=== PATIENT | female | born 1975 | race Caucasian/White ===

== ENCOUNTER 2024-05-23 21:47 | Inpatient (IN) | payer BC, OTHER, SELFPAY ==
[2024-05-23] VITALS (7 sets, daily range): BP systolic 125–144; BP diastolic 76–89
[2024-05-23 18:48] LABS: Glucose - Point of Care 88 mg/dl (70-99)
[2024-05-23 19:09] LABS: % Basophils 0.5 % (0-2); % Immature Granulocytes 0.5 % (0-0.5); % Monocytes 7.4 % (1.7-9.3); % Neutrophils 81.6 % (42.2-75.2); Absolute Lymphocytes 0.7 10^3/uL (1.2-3.4); Absolute Monocytes 0.5 10^3/uL (0.1-0.6); Absolute Neutrophils 5.3 10^3/uL (1.4-6.5); Hematocrit 40.5 % (37.0-47.0); Hemoglobin 13.7 g/dL (12.0-16.0); Mean Corp Hgb Conc. 33.8 g/dL (33.0-37.0); Mean Corpuscular Hgb 30.6 pg (27.0-31.0); Mean Corpuscular Volume 90.4 fL (81.0-99.0); Mean Platelet Volume 9.7 fL (7.4-10.4); Nucleated Red Blood Cells % 0 %; Platelet Count 174 10^3/uL (130-400); Red Blood Cell Count 4.48 10^6/uL (4.20-5.40); White Blood Cell Count 6.5 10^3/uL (4.8-10.8)
--- NOTE | 2024-05-23 19:24 | ED.GENMED ---
History of Present Illness
General
Chief Complaint: Change in Mental Status
Source: patient and family
Exam Limitations: other (Aphasia)
Time Seen by Provider: 05/23/24 18:47
History of Present Illness
History of Present Illness:
49-year-old female somewhat of a difficult historian due to aphasia however presents not feeling well since this morning. After multiple discussions with the gdrtnw-wd-npq and ex- we found out that the ex- talk to her at 2:45 PM and
she was somewhat disoriented and having trouble with words at that time. The bhoeiq-mi-ftq talked to her at 430 with same issues. She was then seen at 530 moving boxes, she is moving. However the symptoms persisted. The hidwme-jg-fmi contacted
the ambulance based on location finder. No history of same.
Past History
Past History
ED Past Medical History: None
Review of Systems
Review of Systems
All Other Systems: Not applicable
Respiratory: Reports no symptoms
Cardiac: Reports no symptoms
ABD/GI: Reports no symptoms
Phy Exam
Physical Exam
Physical Exam:
GENERAL: Alert and oriented
EYE: Orbits normal.
NECK: Supple, no carotid bruit
ENT: Pharynx without erythema
CARDIAC: Regular rate and rhythm without any obvious murmurs.
LUNGS: Clear breath sounds,normal
ABDOMEN: Soft, without focal tenderness or distention
NEUROLOGICAL: Alert and oriented , speech is clear but has trouble with word finding at times. Occasionally the wall word comes out. No slurred speech however. Cranial nerves II through XII intact. No drift. Uhrriy-el-ausd normal. Light touch
intact. Mild tremor at times
SKIN: Warm and dry, no rash or lesion, no discoloration, skin intact.
MUSCULOSKELETAL: No edema,no deformity.Good color
PSYCH: Normal and appropriate interaction.
Scores
NIH Stroke Score
Level of Consciousness: 0 - Alert
LOC Questions: 0-Answers both correctly
LOC Commands: 0-Performs both correctly
Best Horizontal Gaze: 0-Normal
Visual Avila: 0=Normal, no visual loss
Facial Palsy: 0=Normal, symmetrical
Motor - Right Arm: 0=No drift 10 seconds
Motor - Left Arm: 0=No drift 10 seconds
Motor - Right Le-No drift 5 seconds
Motor - Left Le-No drift 5 seconds
Limb Ataxia: 0-Absent
Sensation: 0-Normal
Best Language: 2-Severe aphasia
Dysarthria: 0-Normal
Extinction and Inattention: 0-No abnormality
Total Score:: 2
Course
Orders/Labs/Results
Orders:
Orders
05/23/24 18:53
CT HEAD STROKE ALERT W/o Cont Urgent
Comment:
Reason For Exam: Expressive aphasia
CT HEAD/NECK ANG STROKE ALERT Urgent
Comment:
Reason For Exam: Expressive aphasia
Cardiac Monitoring- Treatment ONCE
IV Insert/Care/Rem.- Treatment PRN
Pulse Ox/cont/shift [RESP] Stat
Quantity: 1
05/23/24 18:54
Electrocardiogram (*1) Stat
Reason for Study: Other
Other Reason for Exam: neuro symptoms
EKG- Treatment ONCE
Test Result ONCE
05/23/24 18:59
Alcohol Urgent
Basic Metabolic Panel Urgent
Complete Blood Count/With Diff Urgent
HCG, Serum Qualitative Screen Urgent
Comment: ADD ON
05/23/24 19:43
0.9% Sodium Chloride 1000 ml [Nss] 1,000 ml IV BOLUS
Aspirin Chewable [Low Strength Aspirin] 324 mg PO NOW STA
Clopidogrel Bisulfate [Plavix] 150 mg PO NOW STA
05/23/24 20:10
Add On- LAB Urgent
Tests Added?: hcg qual
05/23/24 20:27
Clopidogrel Bisulfate [Plavix] 450 mg PO NOW STA
05/23/24 20:54
Add On- LAB Urgent
Tests Added?: alcohol
05/23/24 20:57
Acetaminophen 1000MG/100Ml [Ofirmev] 1,000 mg in 100 ml IV ONCE
Acetaminophen IV Indication:: ED Narcotic Naive Pt-ONCE
Ondansetron Injectable [Zofran] 4 mg IV NOW STA
05/23/24 21:14
Admit/Transfer Patient As Directed
Co-Sign Provider:
Level of Care: Inpatient admission
Assign to:: Telemetry
Physician / Group: naveen rasmussen
Diagnosis: acute cva expressive aphasia, acute headache, etoh misuse
Reason for Telemetry: CVA/TIA
Date to Stop Telemetry: 05/26/24
Time to Stop Telemetry: 11:00
Reason for Hospitalization: acute cva expressive aphasia, acute headache, etoh misuse
Expected length of stay greater than two midnights?: Yes
ELOS- Estimated Length of Stay in days: 5
I certify the patient meets the requirements for IP care: Yes
Code Status As Directed
Resuscitation Status: Full Code
05/23/24 21:19
PRN Pain Medication Management As Directed
May give lesser potent ordered pain med per pt: Yes
preference::
Protocol:: Medication orders for pain may be administered in a
manner that supports deferring to patient preference
when the pt is:
- Requesting an ordered lesser potent pain medication.
Least to most potent pain medications are defined
as: acetaminophen < NSAID < tramadol < opioids
(morphine, oxycodone, hydromorphone).
- Requesting a lesser dose of the same medication IF
ORDERED.
- Requesting a less intrusive route of administration
if both routes are prescribed by the provider (PO <
IV).
05/23/24 21:51
COVID-19 Antigen Urgent
Source: Nasal Swab
05/23/24 22:00
Flush (0.9% Sodium Chloride) [Flush (Nss)] See Dose Instructions IV PER PROTOCOL
05/23/24 22:55
0.9% Sodium Chloride [Nss (Preservative Free)] See Protocol IV PRN PRN
Acetaminophen [Tylenol] 650 mg PO Q4HPRN PRN
Atorvastatin [Lipitor] 40 mg PO QPM
FOLic ACID [Folvite] 1 mg 0.9% Sodium Chloride 50 ml [Nss] 50 ml IV DAILYPRN
Lorazepam [Ativan] 1 mg IV Q1HPRN PRN
Lorazepam [Ativan] 1 mg PO Q2HPRN PRN
Lorazepam [Ativan] 2 mg IV Q1HPRN PRN
Thiamine Injection 200 mg IV Q12
05/23/24 22:55
Echo 2D MMode Color/Doppler Routine
Reason for Study: stroke/TIA
Case Management Consult ONCE
Case Management Consult: Discharge Planning
Comment: stroke/tia
Case Management Consult Once
Case Management Consult: Other
Comment: Substance abuse counseling
DIETARY IP CONSULT Routine
Reason for Consult: Nutrition support, possible refeeding guidelines
DIETARY IP CONSULT Routine
Reason for Consult: stroke/TIA
NEUROLOGY CONSULT Urgent
Consulting Provider: Edilma Pitts
Was physician already notified: Yes
Reason for consult: acute cva
Customs Port Director Urgent
B-Hydroxybutyrate Urgent
GGTP Urgent
Glycohemoglobin (HgbA1c) Routine
Magnesium Urgent
PTT Urgent
Phosphorus Urgent
Prothrombin Time Urgent
Urinalysis Routine
Urine Drug Abuse Screen Routine
MR Brain Without Contrast Routine
Comment:
Reason For Exam: stroke/TIA
OK for patient to be off Cardiac Monitoring for MRI: Yes
Recent pill cam endoscopy?: No
Pacemaker/Defibrillator?: No
Activity As Directed
Activity Level: With Assistance
MSAS SCORE As Directed
MSAS Score 0-4: Repeat MSAS every 2 hours until 0-4 for three consecutive assessments, then every 4 hours x 48
hours.
MSAS Score 5-7: For MILD withdrawl symptoms. Repeat MSAS and RASS every 2 hours
MSAS Score 8-11: For MODERATE withdrawal symptoms. Repeat MSAS and RASS every 1 hour. Consider ICU or IMU
level of care.
MSAS Score > 11: For SEVERE withdrawal symptoms. Repeat MSAS and RASS every 1 hour. Notify provider, consider
ICU level of care.
MSAS Additional Instructions: If no improvement or no decrease in score from severe to moderate within 12
hours, consult psychiatry
MSAS Notify Provider: Notify provider if patient requires more than 10 mg of Lorazepam in eight hour period.
NIH Stroke Scale As Directed
Directions: Per protocol
Comment: every shift and with any change in condition or mental status
Neurological Checks As Directed
Frequency: q4h
Additional Instructions:: q4h x 24h upon admission to the floor, then qshift & with any change in condition
and mental status
Patient Education As Directed
Type: Stroke education packet
Comment: provide to patient and family
Pneumatic Compression Sleeves As Directed
Type: Knee high
Swallow Screening CVA/TIA ONLY As Directed
Comment: NPO until swallowing screening completed
If patient FAILS swallow screening:: NPO, Speech Therapy consult, Aspiration Precautions
If patient PASSES swallow screening, diet:: Cholesterol Lowering
Vital Signs As Directed
Frequency: Per unit guidelines
Ot Eval And Treat Routine
Pt Eval And Treat Routine
Activity Level: As Tolerated
Speech Therapy Eval & Treat Routine
DX Deep Vein Thrombosis Video Routine
05/24/24 03:00
Acetaminophen [Tylenol/Feverall] 650 mg RECTAL Q4HPRN PRN
05/24/24 06:00
Cardiovascular Evaluation IN AM
05/24/24 08:00
Aspirin Chewable [Low Strength Aspirin] 81 mg PO DAILY
Clopidogrel Bisulfate [Plavix] 75 mg PO DAILY
FOLic ACID [Folvite] 1 mg PO DAILY
05/26/24 11:00
DC Protocol for Telemetry ONCE
05/27/24 08:00
Thiamine HCl [Vitamin B1] 100 mg PO BID
Abnormal Lab Results
05/23/24
18:59
Absolute Lymphs (auto) 0.7 L 10^3/uL
(1.2-3.4)
Neutrophils % 81.6 H %
(42.2-75.2)
Lymphocytes % 10.0 L %
(20.5-51.1)
05/23/24 18:59
05/23/24 18:59
Vital Signs
Initial and Last Documented VS:
Initial Vital Signs
BP
144/86
05/23/24 18:48
Last Documented Vital Signs
Temp Pulse Resp BP Pulse Ox
98.4 F 76 30 125/78 96
05/23/24 18:50 05/23/24 22:00 05/23/24 22:00 05/23/24 22:00 05/23/24 20:30
*Pulse Oximetry
Patient hypoxic: no
*EKG
Interpreted by ED Provider?: Yes
Interpretation: normal
Comparison EKG: no comparison EKG present
Heart Rate: 91
Rate: normal
Rhythm: sinus
[place]: normal axis
Interval: normal interval
QRS Pattern: normal QRS
Ischemia: no ischemia
*Commissary Manager Interpretation
Rate: normal
Interpretation: normal
Heart Rate: 90
Rhythm: sinus
*Critical Care Note
Total Time (30-74mins, 75-104mins- exclusive of procedures): 45
Update Note
Update Note:
Multiple discussions trying to find out when she was last normal. We know this started before 2:45 PM which is already out of the 4-1/2-hour window. Patient states she did not feel quite right this morning. Not a thrombolytic candidate.
Discussed with patient. Discussed with neurology. We will do aspirin and Plavix.
1944... Superior division left M2 with asymmetrical flow and decreased flow. Contacted [facility]. They are looking at the study now to decide whether to transfer. Patient and family updated.
2019... Discussed with Sudeep. Distal M2. They would not go after this. Recommend full Plavix(600), aspirin head flat fluids permissive hypertension.
ED Attending Note
-
Portions of this chart may have been created with voice recognition software.� Occasional wrong word or��sound alike� substitutions may have occurred due to the inherent limitations of voice recognition software.
Discharge Plan
Departure
Patient Disposition: Admit
Date of Disposition: 05/23/24
Time of Disposition: 20:26
Presentation/result/management discussed w/ accepting MD/DO: Neurology
Discharge Problem:
Expressive aphasia, Probable CVA
Interventions
Interventions:
*Risk Screen - Suicide Last Done: 05/23/24 18:55
*General Assessment Last Done: 05/23/24 18:50
*Neglect/Abuse Screening Last Done: 05/23/24 18:55
*ED- Fall Risk Assessment Last Done: 05/23/24 18:55
*ED COVID-19 Vaccine History Last Done: 05/23/24 18:55
ED- Pulmonary Assessment Last Done: 05/23/24 18:55
ED- Neurological Assessment Last Done: 05/23/24 18:55
ED- Cardiac Assessment Last Done: 05/23/24 18:55
ED Swallowing Screen Last Done: 05/23/24 18:55
[2024-05-23 19:31] LABS: Blood Urea Nitrogen 13 mg/dl (7-17); Calcium 9.7 mg/dl (8.4-10.2); Carbon Dioxide 22 mmol/L (22-30); Chloride 104 mmol/L (98-107); Glucose 99 mg/dl (70-99); Sodium 142 mmol/L (135-145); eGFR > 60.00
[2024-05-23] MEDS: LOW STRENGTH ASPIRIN 324 MG PO (20:02)
[2024-05-23] MEDS: PLAVIX 150 MG PO (20:02)
[2024-05-23] MEDS: NSS 1000 IV (20:04)
--- NOTE | 2024-05-23 20:35 | HPS.HSE ---
Family Physician
-
Family Physician: NOT KNOW UNKNOWN - PT DOES
Chief Complaint
-
Aphasia, word replacing, headache, nausea
History of Present Illness
49-year-old female according to the ER notes she was talking to her ex- at 2:45 PM when he noticed she was somewhat disoriented and having trouble finding her words.. The pdnaym-qa-fkt talked to her at 430 and noticed the same issues. She
was then seen at 530 moving boxes as she is currently moving. Her eyxtov-xc-ukj contacted an ambulance based on location finder, where she was found by EMS at a [employer] on the phone with her family having expressive aphasia. Patient currently
has expressive aphasia with word replacement when trying to state a problem she will use the word I am excusing, I cannot sore. She is oriented to first and last name age 49 president when asked the year she stated [birth year], is oriented to her 2
children Stephanie 17 cm 14 almost 15 May. She reports a headache all over her head this morning with nausea and light sensitivity. She denies alcohol today because of her headache. She reports her headaches get worse in the spring. She denies
history of smoking or drug use. She is adopted and does not know her family history. She states she is close with her adopted father, but not her adopted mother. She denies sore throat, chest pain, palpitations, cough, shortness of breath, fever,
chills, abdominal pain, vomiting, diarrhea. Past medical history includes migraine headaches, daily alcohol use, hormonal IUD placement.
Medical History
Past Medical History
Past Medical History: Reports Other
Additional Past Medical History:
Migraine headaches worse in the spring
Daily alcohol use 1 or 2 glasses of white wine
Hormonal IUD placement
2 vaginal births 2 girls ages 17 and 14
Past Surgical History: Reports None
Social History
Tobacco: Non-smoker
Alcohol: Daily (1-2 glasses white wine)
Drug: None
Personal: (Ex- Dano)
Living: With Family (2 daughters Stephanie and Greg)
Family History
Family History: Other (Patient adopted does not know biological family)
Allergies / Home Medications
Allergies reflects when Allergies were last updated in [facility].
Home Medications with original date entered in [facility]
Allergy/Medication List:
Allergies
Allergy/AdvReac Type Severity Reaction Status Date / Time
No Known Allergies Allergy Unverified 05/23/24 19:17
Home Medications
No Meds [No Current Medications] 05/23/24
Review of Systems
-
History Source: Patient and Physician (ER physician and ER nurse)
A 12 point ROS was completed and negative except as noted: Yes
Constitutional: Denies Fever or Chills
EENT: Reports Other (Expressive aphasia and word replacing); Denies Sore Throat or Runny Nose
Respiratory: Denies Cough or Trouble Breathing
Cardiac: Denies Chest Pain, Diaphoresis, Palpitations or Syncope
Abdomen/GI: Reports Nausea; Denies Abdominal Pain, Vomiting, Diarrhea or Constipated
: Denies Dysuria, Frequency, Flank Pain, Incontinence or Difficulty Voiding
Musculoskeletal: Denies Joint Pain or Edema
Skin: Denies Itching or Rash
Neurological: Reports Headache (All over her head 10 out of 10, light sensitivity); Denies Dizzy, Weakness or Numbness
Endocrine: Reports No Symptoms
Hematologic/Lymphatic: Reports No Symptoms
Psych: Reports Calm
Physical Exam
Vital Signs
Vital Signs
Temp Pulse Resp BP Pulse Ox
98.4 F 93 22 144/86 99
05/23/24 18:50 05/23/24 18:50 05/23/24 18:50 05/23/24 18:50 05/23/24 18:50
Physical Exam
General: Conversant and Pain (Headache all over 10 out of 10 plus light sensitivity); No Fever, Chills or Slurred Speech
HEENT: NormoCephalic, Anicteric, PERRLA, [place] Conjunctivae, No Ptosis, Neck Nontender and Other (Dry oral mucosa)
Respiratory: Clear; No Wheezes, Rales or Rhonchi
Cardiac: S1/S2 and Regular Rhythm; No Murmur, Rub, Gallop or Peripheral Edema
GI: Soft, Non Tender, Non Distended, Normal Bowel Sounds and No Hepatosplenomegaly
Rectal: Deferred by Provider
Genito-urinary: Deferred by me
Musculoskeletal: No Clubbing, No Cyanosis and No Edema
Skin: Warm and Dry; No Rash or Jaundice
Neuro: Awake, Alert, Oriented (To name, age 49, president Lena, thinks it is [birth year], 2 daughters Stephanie and Greg age 17 and 14 almost 15 in May, ex- Dano), No Motor Deficits, Cranial Nerves Intact and No Sensory Deficits; No Slurred Speech,
Facial Droop, Tremors or Sedated
Psych: Anxious (Due to headache and expressive aphasia)
Laboratory Results
-
05/23/24 18:59
05/23/24 18:59
Impression/Plan
-
Impression/plan:
Admit to telemetry
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
Current headache/nausea patient reports 10 out of 10
-Consult Neurology- Dr kaur
-Check lipid profile, HgbA1c
-Check UDS
-ER Dr Pettit spoke with Neurology at [facility] who stated the area of occlusion was too distal for any intervention
-Allow permissive HTN-BP 144/86
-They recommended Plavix 600 mg now then Plavix 75 mg daily
-Then aspirin 324 mg then aspirin 81 mg now and daily
-Will check MRI brain in a.m.
-Will give IV Ofirmev
-IV Zofran as needed
-Speech swallow eval
-PT/OT/case management
EKG: NSR 91 bpm, QTc 435 MS otherwise normal
CTA head and neck:
1. Asymmetric poor opacification of the mid/distal superior division of the left M2 suspicious for occlusion
2. No significant arterial stenosis. Diminutive appearance of the right vertebral artery throughout its course with PICA termination. Left dominant vertebral artery.
#History migraines
-Per patient worse in the spring
Has migraine today with allover headache and nausea
-Will give IV Ofirmev in the ER and as needed, Tylenol as needed
-IV Zofran as needed
#Daily alcohol use
Patient was able to state 1 or 2 glasses of white wine a day but not today for 03/13/2024
-Check alcohol level
-MSAs screen with protocol
-IV thiamine, IV folate
#Patient has hormonal IUD placed
DVT prophylaxis
SCDs
Full code
--- NOTE | 2024-05-23 20:37 | W.PN.UPDATE ---
Update Note
Progress Note Update
This note serves as an addendum to the H&P by bowling ball marker NATE Lilly BROWNING
HPI
49F No significant PMHX somewhat difficult historian due to aphasia seen at ER:
- reports not feeling well since this morning.
- per cghwvv-ou-idm and ex- account:
- ex- talk to her at 2:45 PM and she was somewhat disoriented and having trouble with words at that time.
- mhcwvt-yy-tyx talked to her at 430 with same issues.
- She was then seen at 530 moving boxes, she is moving. However the symptoms persisted.
- Jlmvcn-im-ypi contacted the ambulance based on location finder.
Vital Signs
Temp Pulse Resp BP Pulse Ox
98.4 F 93 22 144/86 99
05/23/24 18:50 05/23/24 18:50 05/23/24 18:50 05/23/24 18:50 05/23/24 18:50
PE
Gen: looks unwell
HEENT:symmetric face
Neck: supple
Lungs:CTA
Cor:S1 S2
Abdomen: soft
INSULATING MACHINE OPERATOR: trouble with word finding at times. Occasionally the word comes out. No slurred speech
MS: symmetric movement in all extremities
Psych: flat
Lab
05/23/24
18:59
WBC 6.5
Hgb 13.7
Plt Count 174
BUN 13
Creatinine 0.7
eGFR > 60.00
EKG
NORMAL SINUS RHYTHM
NORMAL ECG
NO PREVIOUS ECGS AVAILABLE
HCT: No acute intracranial abnormality.
CT HEAD/NECK ANG STROKE ALERT
CTA Head: There is asymmetrically poor opacification of the mid/distal superior division of the left M2 suspicious for occlusion.
CTA Neck: No significant arterial stenosis. Diminutive appearance of the right vertebral artery throughout its course with PICA termination. Left dominant vertebral artery.
No prior hospitalist admission:
ASSESSMENT & PLAN
Acute CVA with dysphasia and word finding difficulty
CTA suggest superior division left M2 with asymmetrical flow and decreased flow.
ER attd case dw Neuro and Sudeep but cannot intervene due to distal M2
- out of the 4-1/2-hour window.
- Neuro suggest aspirin and Plavix.( Full load Plavix 450 + 150 suggested by [facility] per ER attd)
- Brain MRI
- ECHO
- Lipids and A1C
- ST to evaluate
- Neuro consulted
DVT Px: SCD
Full code
IP TLM
[2024-05-23] MEDS: PLAVIX 450 MG PO (20:38)
[2024-05-23 20:46] LABS: HCG, Serum Qualitative Screen Negative
[2024-05-23] MEDS: ZOFRAN 4 MG IV (21:08)
[2024-05-23] MEDS: OFIRMEV 100 IV (21:08)
[2024-05-23 21:13] LABS: Alcohol None Detected
[2024-05-23 22:17] LABS: COVID-19 Antigen Negative (Negative)
[2024-05-23] MEDS: LIPITOR 40 MG PO (23:49)
[2024-05-23] MEDS: FLUSH (NSS) 2 FLUSH IV (23:49)
[2024-05-23] MEDS: THIAMINE INJECTION 200 MG IV (23:49)
[2024-05-24 00:20] LABS: GGTP 20 U/L (12-43); Magnesium 2.1 mg/dl (1.6-2.3); Phosphorus 3.2 mg/dl (2.5-4.5)
[2024-05-24 00:21] LABS: APTT 27.6 Sec (23.4-35.0); INR 1.04; PT 13.9 Sec (11.4-14.6)
[2024-05-24 00:26] LABS: B-Hydroxybutyrate > 6.00 mmol/L (0.02-0.27)
[2024-05-24] MEDS: TYLENOL 650 MG PO ×2 (03:05→12:36)
[2024-05-24 03:21] VITALS: BP 132/74
[2024-05-24 05:27] LABS: Urine Albumin 1+ (Neg - Trace); Urine Bilirubin Negative (Negative); Urine Character Clear (Clear); Urine Color Yellow; Urine Glucose Negative (Negative); Urine Ketone 3+ (Negative); Urine Leukocyte Negative (Negative); Urine Nitrite Negative (Negative); Urine Occult Blood 1+ (Negative); Urine Specific Gravity 1.025 (<1.030); Urine Urobilinogen Negative (Neg - 1+)
[2024-05-24 05:39] LABS: Urine Amorphous Seen; Urine Mucus Moderate; Urine Squamous Cell >30 /LPF (Few)
[2024-05-24 05:41] LABS: Urine Bacteria Moderate (Negative)
[2024-05-24 06:50] LABS: Amphetamines Negative (Negative); Barbiturates Negative (Negative); Benzodiazepines Negative (Negative); Buprenorphine Negative (Negative); Cocaine Negative (Negative); Marijuana Negative (Negative); Methadone Negative (Negative); Methamphetamines Negative (Negative); Opiates Negative (Negative); Phencyclidine Negative (Negative); Tricyclic Antidepressants Negative (Negative)
--- NOTE | 2024-05-24 07:49 | CON.NEURO ---
Consultation
Order
Date of Consultation: 05/24/24
Requesting Provider: Lilly Clarke CRNP
Reason for Consult: Stroke
Neurology Consultation Note.
HPI: This is a 49-year-old right-handed woman who presented to [facility] on 05/23/2024 with language dysfunction and headache.
Ms. Brown reports experiencing trouble 'holding up' since late morning to early afternoon yesterday, initially attributing it to fatigue. The speech difficulties were characterized by an inability to find the right words, accompanied by
comprehension issues. A headache developed in the late afternoon, coinciding with the speech problems. The headache was described as pounding and associated with palpitations. The patient has a history of migraines with aura. She typically manages
her migraines with ibuprofen 800 mg, which is usually effective. The patient's ex-fiancee's sister recognized something was wrong during a phone conversation and called an ambulance. The patient denies any current headache or speech difficulties at
the time of the interview.
ER VS: 144/86, 93, afebrile
EKG:NSR, QTc Int : 435 ms.
PDMP:none
Labs: LDL�85, globin A1c�5.2, normal sodium, creatinine, glucose, WBCs.
CT head wo contrast�no acute abnormalities
CTA head/neck- asymmetrically poor opacification of the mid/distal superior division of the left M2 suspicious for occlusion.
Ms. Brown was loaded with Plavix 600 mg in ER.
PMH: allergic rhinitis, migraine with aura
PSH:none
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
FH: Adopted
All:NKDA
ROS: Positive for intentional 20 pounds weight loss
HENT: Negative for ear pain, hearing loss, tinnitus and trouble swallowing.
Eyes: Negative. Negative for photophobia, pain and visual disturbance.
Respiratory: Negative for cough, choking and shortness of breath.
Cardiovascular: Negative for chest pain, palpitations and leg swelling.
Gastrointestinal: Negative for abdominal pain and vomiting.
Endocrine: Negative. Negative for cold intolerance.
Genitourinary: Negative for dysuria, flank pain and urgency.
Musculoskeletal: Negative for back pain, gait problem, neck pain and neck stiffness.
Skin: Negative for rash.
Allergic/Immunologic: Negative. Negative for immunocompromised state.
Neurological: Positive for transient headache and aphasia
Psychiatric/Behavioral: Negative for behavioral problems, confusion and hallucinations.
General: Well developed. In no acute distress.
Cardio: Regular rate and rhythm without murmur. Extremities are without cyanosis or edema.
Neuro:
Mental Status: Alert, oriented to person, place, and date. Normal attention and recall. Good fund of knowledge. Follows complex requests across the midline. Comprehension, naming, and repetition intact.
Cranial Nerves: Pupils are equally round and reactive to light. EOMs full. Visual raygoza full to confrontation. No ptosis. No nystagmus. V1-V3 intact to light touch and pinprick bilaterally, symmetric. Face symmetric. Normal hearing AU. The
palate elevated well. SCMs and traps 5/5. Tongue midline. No dysarthria.
Motor: Normal bulk and tone. No pronator or arm drift. Strength 5/5 throughout. No clonus.
Reflexes: 2+ throughout the upper extremities and knees. Plantar responses flexor bilaterally.
Sensory: Normal vibration and JPS.
Coordination: No dysmetria or tremor.
Gait: deferred
Assessment and Plan:
I. Acute aphasia. Differential diagnosis includes migraine with aura versus vascular versus epileptic
II. Migraine with aura
III. 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
-Continue Telemetry monitoring
-TTE
-Continue aspirin 81 mg and Plavix 75 mg once a day for 3 weeks
-Further workup will depend on brain MRI results
-PT.
-DVT prophylaxis.
I personally reviewed all radiology and labs along with past medical records pertinent to current medical problems. Total time spent in patient care is 60 minutes.
Thank you for allowing us to participate in the care of this patient. We will continue to follow. Please do not hesitate to contact us with any questions or concerns.
Subjective/Objective
Subjective Data
Date of Service: May 24, 2024
Objective Data
Vital Signs
Temp Pulse Resp BP Pulse Ox
37.4 C 76 16 132/74 96
05/24/24 03:21 05/24/24 03:21 05/24/24 03:21 05/24/24 03:21 05/24/24 03:21
Lab Results
05/23/24 18:59
05/23/24 18:59
PT 13.9 Sec (11.4-14.6) 05/23/24 23:48
INR 1.04 05/23/24 23:48
APTT 27.6 Sec (23.4-35.0) 05/23/24 23:48
Sodium 142 mmol/L (135-145) 05/23/24 18:59
Potassium 4.0 mmol/L (3.5-5.1) 05/23/24 18:59
BUN 13 mg/dl (7-17) 05/23/24 18:59
Glucose 99 mg/dl (70-99) 05/23/24 18:59
Calcium 9.7 mg/dl (8.4-10.2) 05/23/24 18:59
Phosphorus 3.2 mg/dl (2.5-4.5) 05/23/24 23:48
Ur Buprenorphine Negative (Negative) 05/24/24 05:10
Patient Allergies
No Known Allergies Allergy (Unverified 05/23/24 19:17)
Medications
-
Active Medications
Generic Name Dose Route Start Last Admin
Trade Name Freq PRN Reason Stop Dose Admin
Acetaminophen 650 mg 05/24/24 03:00
Acetaminophen 650 Mg Rectal Suppository RECTAL 06/21/24 02:59
Q4HPRN PRN
ESPINOZA, mild pain, or temp >100.4F
Acetaminophen 650 mg 05/24/24 03:00 05/24/24 03:05
Acetaminophen 325 Mg Tablet PO 06/21/24 02:59 650 mg
Q4HPRN PRN Administration
ESIPNOZA, mild pain, or temp >100.4F
Aspirin 81 mg 05/24/24 08:00
Aspirin 81 Mg Chewable Tablet PO 06/21/24 07:59
DAILY ORIN
Atorvastatin Calcium 40 mg 05/23/24 22:55 05/23/24 23:49
Atorvastatin (Lipitor) 40 Mg Tablet PO 06/20/24 22:54 40 mg
QPM ORIN Administration
Clopidogrel Bisulfate 75 mg 05/24/24 08:00
Clopidogrel 75 Mg Tablet PO 06/21/24 07:59
DAILY ORIN
Folic Acid 1 mg 05/24/24 08:00
Folic Acid 1 Mg Tablet PO 06/21/24 07:59
DAILY ORIN
Folic Acid 1 mg/ Sodium 50.2 mls @ 200.8 mls/hr 05/23/24 22:55
Chloride IV 06/20/24 22:54
DAILYPRN PRN
if NPO
Lorazepam 1 mg 05/23/24 22:55
Lorazepam 1 Mg Tablet PO 06/20/24 22:54
Q2HPRN PRN
MSAS 5-7
Lorazepam 1 mg 05/23/24 22:55
Lorazepam 2 Mg/Ml Vial IV 06/20/24 22:54
Q1HPRN PRN
MSAS 8-11
Lorazepam 2 mg 05/23/24 22:55
Lorazepam 2 Mg/Ml Vial IV 06/20/24 22:54
Q1HPRN PRN
MSAS > 11
Sodium Chloride 0 flush 05/23/24 22:00 05/23/24 23:49
Sodium Chloride 0.9% (Flush) Syringe IV 06/20/24 21:59 2 flush
PER PROTOCOL ORIN Administration
Sodium Chloride 0 ml 05/23/24 22:55
Sodium Chloride 0.9% (Preservative Free) 10 Ml Vial IV 06/20/24 22:54
PRN PRN
To dilute IV Ativan
Protocol
Thiamine HCl 200 mg 05/23/24 22:55 05/23/24 23:49
Thiamine (100 Mg/Ml) 2 Ml Vial IV 05/26/24 08:01 200 mg
Q12 ORIN Administration
Thiamine HCl 100 mg 05/27/24 08:00
Thiamine 100 Mg Tablet PO 06/24/24 07:59
BID ORIN
Home Medications
�Medication �Instructions �Recorded
No Meds [No Current Medications] 05/23/24
Vital Signs and Labs
-
Vital Signs and Labs:
Vital Signs
Temp Pulse Resp BP Pulse Ox
37.1 C 69 18 115/68 98
05/24/24 08:10 05/24/24 08:10 05/24/24 08:10 05/24/24 08:10 05/24/24 08:10
Lab Results
05/23/24 18:59
05/23/24 18:59
PT 13.9 Sec (11.4-14.6) 05/23/24 23:48
INR 1.04 05/23/24 23:48
APTT 27.6 Sec (23.4-35.0) 05/23/24 23:48
Sodium 142 mmol/L (135-145) 05/23/24 18:59
Potassium 4.0 mmol/L (3.5-5.1) 05/23/24 18:59
BUN 13 mg/dl (7-17) 05/23/24 18:59
Glucose 99 mg/dl (70-99) 05/23/24 18:59
Calcium 9.7 mg/dl (8.4-10.2) 05/23/24 18:59
Phosphorus 3.2 mg/dl (2.5-4.5) 05/23/24 23:48
LDL Cholesterol, Calc 85 mg/dl 05/24/24 07:30
Ur Buprenorphine Negative (Negative) 05/24/24 05:10
Medications
-
Medications:
Generic Name Dose Route Start Last Admin
Trade Name Freq PRN Reason Stop Dose Admin
Acetaminophen 650 mg 05/24/24 03:00
Acetaminophen 650 Mg Rectal Suppository RECTAL 06/21/24 02:59
Q4HPRN PRN
ESPINZOA, mild pain, or temp >100.4F
Acetaminophen 650 mg 05/24/24 03:00 05/24/24 03:05
Acetaminophen 325 Mg Tablet PO 06/21/24 02:59 650 mg
Q4HPRN PRN Administration
ESPINOZA, mild pain, or temp >100.4F
Aspirin 81 mg 05/24/24 08:00 05/24/24 09:34
Aspirin 81 Mg Chewable Tablet PO 06/21/24 07:59 81 mg
DAILY ORIN Administration
Atorvastatin Calcium 40 mg 05/23/24 22:55 05/23/24 23:49
Atorvastatin (Lipitor) 40 Mg Tablet PO 06/20/24 22:54 40 mg
QPM ORIN Administration
Clopidogrel Bisulfate 75 mg 05/24/24 08:00 05/24/24 09:34
Clopidogrel 75 Mg Tablet PO 06/21/24 07:59 75 mg
DAILY ORIN Administration
Folic Acid 1 mg 05/24/24 08:00 05/24/24 09:34
Folic Acid 1 Mg Tablet PO 06/21/24 07:59 1 mg
DAILY ORIN Administration
Folic Acid 1 mg/ Sodium 50.2 mls @ 200.8 mls/hr 05/23/24 22:55
Chloride IV 06/20/24 22:54
DAILYPRN PRN
if NPO
Lorazepam 1 mg 05/23/24 22:55
Lorazepam 1 Mg Tablet PO 06/20/24 22:54
Q2HPRN PRN
MSAS 5-7
Lorazepam 1 mg 05/23/24 22:55
Lorazepam 2 Mg/Ml Vial IV 06/20/24 22:54
Q1HPRN PRN
MSAS 8-11
Lorazepam 2 mg 05/23/24 22:55
Lorazepam 2 Mg/Ml Vial IV 06/20/24 22:54
Q1HPRN PRN
MSAS > 11
Sodium Chloride 0 flush 05/23/24 22:00 05/23/24 23:49
Sodium Chloride 0.9% (Flush) Syringe IV 06/20/24 21:59 2 flush
PER PROTOCOL ORIN Administration
Sodium Chloride 0 ml 05/23/24 22:55
Sodium Chloride 0.9% (Preservative Free) 10 Ml Vial IV 06/20/24 22:54
PRN PRN
To dilute IV Ativan
Protocol
Thiamine HCl 200 mg 05/23/24 22:55 05/24/24 09:34
Thiamine (100 Mg/Ml) 2 Ml Vial IV 05/26/24 08:01 200 mg
Q12 ORIN Administration
Thiamine HCl 100 mg 05/27/24 08:00
Thiamine 100 Mg Tablet PO 06/24/24 07:59
BID ORIN
Home Medications
-
Home Medications
No Meds [No Current Medications] 05/23/24
[2024-05-24 08:10] VITALS: BP 115/68
[2024-05-24 08:56] LABS: HDL Cholesterol 57 mg/dl; LDL Cholesterol, Calculated 85 mg/dl; Total Cholesterol 154 mg/dl (50-199); Triglyceride 63 mg/dl (10-149); Very Low Density Lipoprotein 12 mg/dl (0-30)
--- NOTE | 2024-05-24 09:09 | W.PN.HOSP.TC ---
Today's Communication/Plan
-
see A/P
Assessment / Plan
Assessment / Plan
HPI: 49-year-old female without significant PMH p/w disorientation and aphasia.
She reports headache in the morning with nausea and light sensitivity.
A/P:
# Aphasia concern for acute stroke
CTA Head: There is asymmetrically poor opacification of the mid/distal superior division of the left M2 suspicious for occlusion.
CTA suggest superior division left M2 with asymmetrical flow and decreased flow.
No intervene of distal M2 per Neuro from admission
cont DAPT ASA/Plavix
Tele without arrhythmia noted
Check Brain MRI
Check echo with bubble as part of stroke work up
Check BL LE US as part of stroke work up
LDL 85
Follow A1C
Cleared for solid per SPL eval
Neuro consulted
# History migraines
s/p IV Ofirmev, cont Tylenol as needed
IV Zofran as needed
# Daily alcohol use
1 or 2 glasses of white wine a day
Alcohol level negative on admission
Cont MSAs screen with protocol, IV thiamine, IV folate
UDS negative
# Patient has hormonal IUD placed
DVT prophylaxis: SCDs
Full code
total time spent 51 min
Anticipated Discharge: Within 24 hours
Subjective/Interval History
-
Date of Service: May 24, 2024
Objective Data
-
Labs:
Laboratory Results
05/23/24
23:48
PT 13.9
INR 1.04
APTT 27.6
Vital Signs:
Vital Signs
Temp Pulse Resp BP Pulse Ox
37.1 C 69 18 115/68 98
05/24/24 08:10 05/24/24 08:10 05/24/24 08:10 05/24/24 08:10 04/02/25 08:10
I&O
05/23/24 05/24/24 05/25/24
06:59 06:59 06:59
Output Total 800 / 800
Balance -800 / -800
Review of Systems
-
All other systems: Reviewed and negative
Neuro: Reports Other (aphasia has resolved )
Physical Exam
-
General: Well Developed, Well Nourished, No Apparent Distress, Comfortable and Conversant; Negative Respiratory Distress
HEENT: Normocephalic, Atraumatic, Nose Appears Normal and Ears Appear Normal; Negative Oxygen
Respiratory: Clear to Auscultation and Non Labored Respirations; Negative Accessory Resp Muscle Use
Cardiac: Regular Rhythm and S1/S2
GI: Soft, Nontender, Nondistended and Normal Bowel Sounds
Skin: Warm and Dry
Neuro: Awake, Alert, Oriented and AO x 3; Negative Slurred Speech or Facial Droop
Psych: Calm and Intact Judgement/Insight
Data Reviewed
-
CT Scan: Report Reviewed by me
Labs: Labs Reviewed by me
--- NOTE | 2024-05-24 09:18 | PTOTSP ---
Speech Therapy Evaluation:
Swallow:
Pt presents with functional oropharyngeal swallow at bedside. No overt s/sx of aspiration across trials. WBC WNL. Pt passed 3oz swallow screen. No chest imaging completed thus far. She has no predisposing risk factors of dysphagia, however
precipitating risk factors include concern for acute CVA.
Language:
Given pt presented to with aphasia/word replacing and CTA of head showed suspicion for left M2 occlusion, the Quick Aphasia Battery (QAB) form 1 was administered. Scores were as follows:
Word comprehension: 10.00
Sentence comprehension: 9.58
Word findin.75
Grammatical construction: 10.00
Speech motor programmin.00
Repetition: 10.00
Readin.00
QAB overall: 9.89 - no aphasia
Pt earned an overall score of 9.89 on the QAB, indicative of 'no aphasia.' Pt's speech was fluent and without paraphasias or word finding deficits. She was able to independently follow all commands. Pt reported substantial improvement in
language/confusion compared to yesterday and last night.
Recommend:
1. Continue regular solids/thin liquids
2. Medications as tolerated
3. General aspiration precautions
4. FACING BASTER JUMPBASTING to briefly follow pending results of MRI, however swallow function and language skills appear WFL at this time.
[2024-05-24] MEDS: PLAVIX 75 MG PO (09:34)
[2024-05-24] MEDS: THIAMINE INJECTION 200 MG IV ×2 (09:34→19:48)
[2024-05-24] MEDS: FOLVITE 1 MG PO (09:34)
[2024-05-24] MEDS: LOW STRENGTH ASPIRIN 81 MG PO (09:34)
[2024-05-24 10:13] LABS: Glycohemoglobin (HgbA1c) 5.2 % (4.0-5.6)
--- NOTE | 2024-05-24 10:42 | PTCARENOTE ---
Pt in Cardiac Services for Echo Bubble Study. Procedure completed with aseptic technique. Right antecubital 20 G PC utilized, site clear, flushed easily pre and post procedure. Procedure completed per protocol, pt tolerated test well. No change in
status.
[2024-05-24 12:30] VITALS: BP 137/78
[2024-05-24 15:00] VITALS: BP 133/78
--- NOTE | 2024-05-24 16:30 | CM ---
Attempted to see patient however she would not wake up. Will attempt again in the am.
[2024-05-24] MEDS: LIPITOR 40 MG PO (17:02)
[2024-05-24 19:00] VITALS: BP 129/73
[2024-05-24 23:26] VITALS: BP 118/70
[2024-05-25] MEDS: TYLENOL 650 MG PO ×2 (01:43→08:07)
[2024-05-25 03:16] VITALS: BP 130/82
[2024-05-25 07:05] VITALS: BP 122/73
[2024-05-25] MEDS: LOW STRENGTH ASPIRIN 81 MG PO (08:07)
[2024-05-25] MEDS: THIAMINE INJECTION 200 MG IV (08:07)
[2024-05-25] MEDS: FOLVITE 1 MG PO (08:08)
[2024-05-25] MEDS: PLAVIX 75 MG PO (08:08)
--- NOTE | 2024-05-25 09:40 | W.PN.NEURO.1 ---
Today's Communication / Plan
-
.
Subjective/Objective
Subjective Data
Date of Service: May 25, 2024
Neurology follow-up note.
HPI: This is a 49-year-old right-handed woman who presented to [facility] on 05/23/2024 with language dysfunction and headache.
Continues to be in sinus rhythm on telemetry.
Ms. Brown reports 3 out of 10 bifrontal dull headache. No change in vision or recurrent language dysfunction.
LUDIN-no evidence of PFO or intermenstrual thrombus.
LDL�85, hemoglobin A1c�5.2.
Routine EEG(05/25/2024) infreeqeunt FIRDA.
PMH: allergic rhinitis, migraine with aura
PSH:none
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
FH: adopted
All:NKDA
ROS: Positive for intentional 20 pounds weight loss
HENT: Negative for ear pain, hearing loss, tinnitus and trouble swallowing.
Eyes: Negative. Negative for photophobia, pain and visual disturbance.
Respiratory: Negative for cough, choking and shortness of breath.
Cardiovascular: Negative for chest pain, palpitations and leg swelling.
Gastrointestinal: Negative for abdominal pain and vomiting.
Endocrine: Negative. Negative for cold intolerance.
Genitourinary: Negative for dysuria, flank pain and urgency.
Musculoskeletal: Negative for back pain, gait problem, neck pain and neck stiffness.
Skin: Negative for rash.
Allergic/Immunologic: Negative. Negative for immunocompromised state.
Neurological: Positive for transient aphasia
Psychiatric/Behavioral: Negative for behavioral problems, confusion and hallucinations.
General: Well developed. In no acute distress.
Cardio: Regular rate and rhythm without murmur. Extremities are without cyanosis or edema.
Neuro:
Mental Status: Alert, oriented to person, place, and date. Normal attention and recall. Good fund of knowledge. Follows complex requests across the midline. Comprehension, naming, and repetition intact.
Cranial Nerves: Pupils are equally round and reactive to light. EOMs full. Visual raygoza full to confrontation. No ptosis. No nystagmus. V1-V3 intact to light touch and pinprick bilaterally, symmetric. Face symmetric. Normal hearing AU. The
palate elevated well. SCMs and traps 5/5. Tongue midline. No dysarthria.
Motor: Normal bulk and tone. No pronator or arm drift. Strength 5/5 throughout. No clonus.
Reflexes: 2+ throughout the upper extremities and knees. Plantar responses flexor bilaterally.
Sensory: Normal vibration and JPS.
Coordination: No dysmetria or tremor.
Gait: deferred
Assessment and Plan:
I. TIA versus migraine with aura. FIRDA has been seen with migraine headache as well as metabolic disturbances, or in some cases, epilepsy.�
II. 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
-Continue aspirin 81 mg and Plavix 75 mg once a day for 3 weeks followed by aspirin 81 mg daily
-Outpatient hematology (thrombophilia workup) and cardiology (Holter monitoring) evaluation
-OP cEEG
-Outpatient neurology follow-up
I personally reviewed all radiology and labs along with past medical records pertinent to current medical problems. Total time spent in patient care is 35 minutes.
Thank you for allowing us to participate in the care of this patient. Please do not hesitate to contact us with any questions or concerns.
Objective Data
Vital Signs
Temp Pulse Resp BP Pulse Ox
36.9 C 64 18 122/73 94
05/25/24 07:05 05/25/24 07:05 05/25/24 07:05 05/25/24 07:05 05/25/24 07:05
Lab Results
05/23/24 18:59
05/23/24 18:59
PT 13.9 Sec (11.4-14.6) 05/23/24 23:48
INR 1.04 05/23/24 23:48
APTT 27.6 Sec (23.4-35.0) 05/23/24 23:48
Sodium 142 mmol/L (135-145) 05/23/24 18:59
Potassium 4.0 mmol/L (3.5-5.1) 05/23/24 18:59
BUN 13 mg/dl (7-17) 05/23/24 18:59
Glucose 99 mg/dl (70-99) 05/23/24 18:59
Calcium 9.7 mg/dl (8.4-10.2) 05/23/24 18:59
Phosphorus 3.2 mg/dl (2.5-4.5) 05/23/24 23:48
LDL Cholesterol, Calc 85 mg/dl 05/24/24 07:30
Ur Buprenorphine Negative (Negative) 05/24/24 05:10
Patient Allergies
No Known Allergies Allergy (Unverified 05/23/24 19:17)
Vital Signs and Labs
-
Vital Signs and Labs:
Vital Signs
Temp Pulse Resp BP Pulse Ox
36.9 C 64 18 122/73 94
05/25/24 07:05 05/25/24 07:05 05/25/24 07:05 05/25/24 07:05 05/25/24 07:05
Lab Results
05/23/24 18:59
05/23/24 18:59
PT 13.9 Sec (11.4-14.6) 05/23/24 23:48
INR 1.04 05/23/24 23:48
APTT 27.6 Sec (23.4-35.0) 05/23/24 23:48
Sodium 142 mmol/L (135-145) 05/23/24 18:59
Potassium 4.0 mmol/L (3.5-5.1) 05/23/24 18:59
BUN 13 mg/dl (7-17) 05/23/24 18:59
Glucose 99 mg/dl (70-99) 05/23/24 18:59
Calcium 9.7 mg/dl (8.4-10.2) 05/23/24 18:59
Phosphorus 3.2 mg/dl (2.5-4.5) 05/23/24 23:48
LDL Cholesterol, Calc 85 mg/dl 05/24/24 07:30
Ur Buprenorphine Negative (Negative) 05/24/24 05:10
Medications
-
Medications:
Generic Name Dose Route Start Last Admin
Trade Name Freq PRN Reason Stop Dose Admin
Acetaminophen 650 mg 05/24/24 03:00
Acetaminophen 650 Mg Rectal Suppository RECTAL 06/21/24 02:59
Q4HPRN PRN
ESPINOZA, mild pain, or temp >100.4F
Acetaminophen 650 mg 05/24/24 03:00 05/25/24 08:07
Acetaminophen 325 Mg Tablet PO 06/21/24 02:59 650 mg
Q4HPRN PRN Administration
ESPINOZA, mild pain, or temp >100.4F
Aspirin 81 mg 05/24/24 08:00 05/25/24 08:07
Aspirin 81 Mg Chewable Tablet PO 06/21/24 07:59 81 mg
DAILY ORIN Administration
Atorvastatin Calcium 40 mg 05/23/24 22:55 05/24/24 17:02
Atorvastatin (Lipitor) 40 Mg Tablet PO 06/20/24 22:54 40 mg
QPM ORIN Administration
Clopidogrel Bisulfate 75 mg 05/24/24 08:00 05/25/24 08:08
Clopidogrel 75 Mg Tablet PO 06/21/24 07:59 75 mg
DAILY ORIN Administration
Folic Acid 1 mg 05/24/24 08:00 05/25/24 08:08
Folic Acid 1 Mg Tablet PO 06/21/24 07:59 1 mg
DAILY ORIN Administration
Folic Acid 1 mg/ Sodium 50.2 mls @ 200.8 mls/hr 05/23/24 22:55
Chloride IV 06/20/24 22:54
DAILYPRN PRN
if NPO
Lorazepam 1 mg 05/23/24 22:55
Lorazepam 1 Mg Tablet PO 06/20/24 22:54
Q2HPRN PRN
MSAS 5-7
Lorazepam 1 mg 05/23/24 22:55
Lorazepam 2 Mg/Ml Vial IV 06/20/24 22:54
Q1HPRN PRN
MSAS 8-11
Lorazepam 2 mg 05/23/24 22:55
Lorazepam 2 Mg/Ml Vial IV 06/20/24 22:54
Q1HPRN PRN
MSAS > 11
Sodium Chloride 0 flush 05/23/24 22:00 05/23/24 23:49
Sodium Chloride 0.9% (Flush) Syringe IV 06/20/24 21:59 2 flush
PER PROTOCOL ORIN Administration
Sodium Chloride 0 ml 05/23/24 22:55
Sodium Chloride 0.9% (Preservative Free) 10 Ml Vial IV 06/20/24 22:54
PRN PRN
To dilute IV Ativan
Protocol
Thiamine HCl 200 mg 05/23/24 22:55 05/25/24 08:07
Thiamine (100 Mg/Ml) 2 Ml Vial IV 05/26/24 08:01 200 mg
Q12 ORIN Administration
Thiamine HCl 100 mg 05/27/24 08:00
Thiamine 100 Mg Tablet PO 06/24/24 07:59
BID ORIN
Home Medications
-
Home Medications
No Meds [No Current Medications] 05/23/24
--- NOTE | 2024-05-25 10:07 | W.PN.HOSP.TC ---
Addendum entered and electronically signed by Amber Arteaga MD 05/25/24 13:21:
total DC time 38 min
Original Note:
Today's Communication/Plan
-
see A/P
Assessment / Plan
Assessment / Plan
HPI: 49-year-old female without significant PMH p/w disorientation and aphasia.
She reports headache in the morning with nausea and light sensitivity.
A/P:
# Aphasia possibly 2/2 migraine with aura , acute stroke ruled out
CTA Head: There is asymmetrically poor opacification of the mid/distal superior division of the left M2 suspicious for occlusion.
CTA suggest superior division left M2 with asymmetrical flow and decreased flow.
Brain MRI ruled out acute stroke, No evidence of acute intracranial abnormality.
cont DAPT ASA/Plavix for 3 weeks per neuro (despite MRI brain negative finding)
Tele without arrhythmia noted
Echo unrevealing: EF 60 to 65%. Normal diastolic function. No shunt noted
Cleared for solid per SPL eval
Appreciate Neuro input
# History migraines
s/p IV Ofirmev, cont Tylenol as needed
IV Zofran as needed
# Daily alcohol use
1 or 2 glasses of white wine a day
Alcohol level negative on admission
Cont MSAs screen with protocol, IV thiamine, IV folate
UDS negative
# Patient has hormonal IUD placed
DVT prophylaxis: SCDs
Full code
DW Neuro
Anticipated Discharge: Today
Subjective/Interval History
-
Date of Service: May 25, 2024
Objective Data
-
Vital Signs:
Vital Signs
Temp Pulse Resp BP Pulse Ox
36.9 C 64 18 122/73 94
05/25/24 07:05 05/25/24 07:05 05/25/24 07:05 05/25/24 07:05 05/25/24 07:05
I&O
05/24/24 05/25/24 05/26/24
06:59 06:59 06:59
Intake Total 1440 / 1440
Output Total 800 / 800
Balance -800 / -800 1440 / 1440
Review of Systems
-
History Source: Patient
All other systems: Reviewed and negative
Neuro: Reports No Symptoms and Other (aphasia has resolved )
Physical Exam
-
General: Well Developed, Well Nourished, No Apparent Distress, Comfortable and Conversant; Negative Respiratory Distress or Slurred Speech
HEENT: Normocephalic, Atraumatic, Nose Appears Normal and Ears Appear Normal; Negative Oxygen
Respiratory: Clear to Auscultation and Non Labored Respirations; Negative Accessory Resp Muscle Use
Cardiac: Regular Rhythm and S1/S2
GI: Soft, Nontender, Nondistended and Normal Bowel Sounds
Skin: Warm and Dry
Neuro: Awake, Alert, Oriented and AO x 3; Negative Slurred Speech or Facial Droop
Psych: Calm and Intact Judgement/Insight
Data Reviewed
-
CT Scan: Report Reviewed by me
MRI: Report Reviewed by me, Discussed with Physician (Neuro) and Discussed with Patient
Labs: Labs Reviewed by me
--- NOTE | 2024-05-25 10:07 | EEGC.RPT ---
Continuous EEG Report
Recording
Start Date of Data Reviewed: 05/25/24
End Date of Data Reviewed: 05/25/24
Done with Video Recording: Yes
Electrocardiogram: Unremarkable
Report
TECHNICAL REMARKS:��This is a technically satisfactory eighteen channel record employing 21 disc electrodes applied according to a measured international 10-20 electrode placement system.��There were no significant technical difficulties.��The study
was done on a [employer] System.
CLINICAL HISTORY:�This is a 49-year-old woman with transient aphasia. �This study was requested to look for epileptiform activity.
MEDICATIONS: no AED
STUDY DURATION: 23 min, 12 sec
�REPORT: �At the onset of the EEG, the patient is awake. The background activity consists of 11-12 Hz, persistent, posteriorly dominant, moderate in amplitude, symmetric, and rhythmic activity that is reactive to eye-opening with admixed 10-15
microvolts delta activity.� Anteriorly, it consists of a mixture of symmetric and rhythmic 5-10 microvolts, 15-20 beta activity, intermittent left hemispheric slowing was present.� Stepwise intermittent photic stimulation (1-31 Hz) did not induce
any additional abnormalities.� Hyperventilation was not performed.� Infrequent bifrontal intermittent rhythmic delta activity is seen. Drowsiness is characterized by low amplitude mixed frequency activity, decreased eye blinking, and muscle
artifact. N2 sleep was reached.
�IMPRESSION: �This is an abnormal awake and sleep EEG due to bifrontal intermittent rhythmic delta activity indicative of cerebral dysfunction nonspecific in terms of etiology.� No epileptiform activity was seen.� If the clinical picture warrants, a
sleep-deprived awake and sleep record may be helpful.
--- NOTE | 2024-05-25 11:07 | CM ---
Spoke with patient to obtain information for assessment. 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 She described herself as independent with all of
her ADLs, personal care, dressing and bathing. She can cook, clean, do instructor of sociology. She drives and can get to her appointments and do all of her own shopping. She has never had VN. She has not been to a SNF in the past. She has no DME in her
home.
Patient has a prescription plan and uses [facility] in [place] for all of her medications.
She does not have a PCP listed.
Plan: Case management will continue to follow and assist with discharge planning. Home, no needs .
[2024-05-25 11:28] VITALS: BP 123/77
--- NOTE | 2024-05-25 12:54 | W.DCSUMMARY ---
Discharge Summary
Discharge Data
Date of Admission: 05/23/24
Date of Discharge: 05/25/24
-
Pending Results: No
Hospital Course
Principal Diagnosis:
Aphasia possibly due to migraine with aura, acute stroke ruled out
Chronic Diagnoses:�
History migraines
Daily alcohol use
Consultations:�
Neurology
Procedures:�
None
Clinical course:�
This is a 49-year-old female without significant past medical history who presented with disorientation and transient aphasia.
She also reported headache in the morning with nausea and light sensitivity.
Problem 1:
Aphasia possibly 2/2 migraine with aura, acute stroke ruled out.
Although her CTA Head and CT angio showed asymmetrically poor opacification of the mid/distal superior division of the left M2, suspicious for occlusion, her Brain MRI ruled out acute stroke (showed no evidence of acute intracranial abnormality).
She was started with dual antiplatelet therapy aspirin and Plavix while in the hospital, and can continue with 21 days total per neurology.
As part of the initial stroke workup, an echo was obtained which was unrevealing (EF 60 to 65%. Normal diastolic function. No shunt noted).
Her LDL and A1c were also within normal limits, and telemetry did not reveal any arrhythmia.
As for the rest of her medical problems, they were stable during her hospital stay.
Discharge Plan
-
Patient Disposition: Home (Routine Discharge)
Discharge Diagnosis/Procedures: Aphasia possibly due to migraine with aura (acute stroke ruled out)
Condition: Good
Diet: As tolerated
Activity: As tolerated
Driving Restrictions: As prior to admission
Referrals:
UNKNOWN - PT DOES,NOT KNOW [Family Provider] - in less than 1 week
Prescriptions:
New
aspirin 81 mg Tablet,Chewable
81 mg PO DAILY 20 Days Qty: 20 0RF
clopidogrel 75 mg Tablet
75 mg PO DAILY 20 Days Qty: 20 0RF
Discharge Orders:
Discharge Patient (As Directed); Ordered 05/25/24
Ordered By: Amber Arteaga
Discharge Date and Time
Print Language: LIBERIAN
[2024-05-25 15:03] VITALS: BP 121/75
== END 2024-05-25 16:42 | disposition home or self-care (01) | DRG 103 ==
LOC: 4 EAST ACU 21:47
PROVIDERS: Clinical Nurse Specialist Family Health; ADMITTING PHYSICIAN Internal Medicine; ATTENDING PHYSICIAN Internal Medicine; CONSULT PHYSICIAN Psychiatry & Neurology Neurology; EMERGENCY PHYSICIAN Emergency Medicine
DX: G43.109 Migraine with aura, not intractable, without status migrainosus (principal); R47.01 Aphasia; I10 Essential (primary) hypertension; Z79.02 Long term (current) use of antithrombotics/antiplatelets; Z79.82 Long term (current) use of aspirin; Z87.891 Personal history of nicotine dependence; Z11.52 Encounter for screening for COVID-19
CPT/HCPCS: 70450; 70496; 70498; 70551; 80048; 80061; 80306; 81003; 81015; 82010; 82077; 82962; 82977; 83036; 83735; 84100; 84703; 85025; 85610; 85730; 87811; 92523; 92610; 93005; 93306; 93970; 95816; 96361; 96374; 96375; 97162; 97166; 99291; Q9967